=== PATIENT | female | born 1955 | race Asian ===

== ENCOUNTER 2016-11-26 11:46 | Observation (INO) | END 2016-11-27 15:10 | disposition home or self-care (01) | DX: R07.89 Other chest pain (principal); I10 Essential (primary) hypertension; E11.9 Type 2 diabetes mellitus without complications; E78.00 Pure hypercholesterolemia, unspecified; E78.5 Hyperlipidemia, unspecified; Z79.82 Long term (current) use of aspirin; Z98.51 Tubal ligation status | CPT/HCPCS: 71010; 78452; 80053; 80061; 82550; 82553; 82962; 83036; 83880; 84443; 84484; 85025; 85610; 85730; 93005; 93017; 93306; 96372; 99285; A9500; A9505; G0378; J1815; J2785 ==

== ENCOUNTER 2017-06-09 19:03 | Emergency (ER) | payer BC ==
[~2017-06-09] VITALS: Ht 160 cm; Wt 71.5 kg
[~2017-06-09 19:03] MED LIST: ASPI81TA3 PO; ATEN-138 PO; EMPA25TA PO; FENO145T19 PO; GLIM4TAB PO; LIRA0.6P2 SQ; METF-406 PO
[2017-06-09 19:10] VITALS: Ht 160 cm; Wt 71.5 kg
[2017-06-09] MEDS ORDERED: morphine 4 MG/ML VIAL IV STA (20:40)
[2017-06-09] MEDS ORDERED: ONDANSETRON 4 MG INJ IV STA (20:40)
[2017-06-09] MEDS ORDERED: CHOL400T10 PO (21:20)
[2017-06-09] MEDS ORDERED: CYAN100T PO (21:21)
[2017-06-09] MEDS ORDERED: ESOM20CA PO (21:22)
[2017-06-09] MEDS ORDERED: ATOR10TA65 PO (21:25)
[2017-06-09 21:34] LABS: ABNORMAL IP MESSAGE 1; BASOPHIL # 0.1 10^3/ul (0.0-0.1); BASOPHILS % 0.6 % (0.0-2.0); EOSINOPHILS # 0.2 10^3/ul (0.0-0.5); EOSINOPHILS % 1.3 % (0.0-7.0); HEMATOCRIT 42.7 % (37.0-47.0); HEMOGLOBIN 14.1 g/dl (12.0-16.0); LYMPHOCYTES # 2.5 10^3/ul (0.8-2.9); LYMPHOCYTES % 18.9 % (15.0-51.0); MEAN CORPUSCULAR HEMOGLOBIN 29.9 pg (29.0-33.0); MEAN CORPUSCULAR VOLUME 90.7 fl (82.0-101.0); MEAN PLATELET VOLUME 11.4 fl (7.4-10.4); MONOCYTE # 1.6 10^3/ul (0.3-0.9); MONOCYTES % 12.1 % (0.0-11.0); NEUTROPHIL # 8.9 10^3/ul (1.6-7.5); NEUTROPHILS % 66.9 % (39.0-77.0); PLATELET COUNT 239 10^3/UL (140-415); RED BLOOD COUNT 4.71 10^6/ul (4.20-5.40); RED CELL DISTRIBUTION WIDTH 12.3 % (11.5-14.5); WHITE BLOOD COUNT 13.4 10^3/ul (4.8-10.8)
[2017-06-09 21:35] LABS: POSITIVE DIFF @See below
[2017-06-09 21:37] LABS: ADD UMIC NO; UR ASCORBIC ACID 20 mg/dL (NEGATIVE); UR BILIRUBIN (Dip) NEGATIVE (NEGATIVE); UR BLOOD (Dip) NEGATIVE (NEGATIVE); UR CLARITY CLEAR (CLEAR); UR COLOR YELLOW (YELLOW); UR GLUCOSE (Dip) 3+ mg/dL (NEGATIVE); UR KETONES (Dip) TRACE mg/dL (NEGATIVE); UR LEUKOCYTE ESTERASE (Dip) NEGATIVE Leu/ul (NEGATIVE); UR NITRITE (Dip) NEGATIVE (NEGATIVE); UR SPECIFIC GRAVITY (Dip) 1.014 (1.003-1.030); UR TOTAL PROTEIN (Dip) NEGATIVE (NEGATIVE); UR UROBILINOGEN (Dip) NEGATIVE (NEGATIVE)
[2017-06-09 21:52] LABS: ALBUMIN 4.7 g/dl (3.3-4.9); ALBUMIN/GLOBULIN RATIO 1.34; BILIRUBIN,INDIRECT 0.5 mg/dl (0-1.1); BILIRUBIN,TOTAL 0.5 mg/dl (0.2-1.3); CALCIUM 9.8 mg/dl (8.4-10.2); CREATININE 0.56 mg/dl (0.44-1.00); POTASSIUM 3.5 mmol/L (3.5-5.1); TOTAL PROTEIN 8.2 g/dl (6.1-8.1)
[2017-06-09] MEDS ORDERED: metroNIDAZOLE 500 MG TAB PO ONE (22:30)
[2017-06-09] MEDS ORDERED: CIPROFLOXACIN 500 MG TAB PO ONE (22:30)
[2017-06-09] MEDS ORDERED: HYDR-902 PO (22:32)
[2017-06-09] MEDS ORDERED: CIPR500T4 PO (22:32)
[2017-06-09] MEDS ORDERED: DOCU-144 PO (22:32)
[2017-06-09] MEDS ORDERED: METR500T PO (22:32)
--- NOTE | 2017-06-09 22:37 | RADRPT ---
PROCEDURE: CT Abdomen and Pelvis without contrast. CLINICAL INDICATION: Abdominal and pelvic pain. Left lower quadrant pain. TECHNIQUE: CT scan of the abdomen and pelvis without contrast was performed. Coronal and sagittal reformatted images were obtained from the axial source images. Images were reviewed on a high-resolu [employer] PACS workstation. Total exam DLP is 848.55 mGy-cm. CTDIvol is 16.11 mGy. One or more of the f ollowing dose reduction techniques were used: Automated exposure control, adjustment of the mA and/o r kV according to patient size, use of iterative reconstruction technique. COMPARISON: None. FINDINGS: The lung bases are normal. There is no pleural effusion. The liver is normal in size and attenuation. There is no focal hepatic lesion. The gallbladder and bile ducts are normal. The spleen is normal in size. There is no focal splenic lesion. Both adrenals are normal with no enlargement or mass. The pancreas is unremarkable with no mass or evidence of pancreatitis. There is no renal mass or hydronephrosis. There is no renal calculus or ureteral calculus. The abdominal aorta is not dilated. There is calcification in the aorta consistent with atherosclero sis. There is no retroperitoneal lymphadenopathy or mass. There is no pelvic lymphadenopathy or mass. The bladder and distal ureters are normal. The appendix is well seen and appears normal. There is diverticulosis of the descending colon and sigmoid colon. There is a region of thickening o f the bowel wall and marked surrounding mesenteric edema in the lower descending colon. There is no abscess. The bowel and mesentery are otherwise normal. There is no free fluid or free gas. There are degenerative changes of the spine. There is no fracture or lytic lesion IMPRESSION: 1. Atherosclerosis. 2. Normal appendix. 3. Diverticulosis of the descending colon and sigmoid colon. 4. Region of thickening of the bowel wall and marked surrounding mesenteric edema in the lower desc ending colon. This is probably due to diverticulitis. Neoplasm may also give this appearance. Follow -up advised. 5. Degenerative changes of the spine. 6. Otherwise unremarkable study. RPTAT: QQ .Jv Castaneda MD, MD Date Time Electronically viewed and signed by .Jv Castaneda MD, on 06/09/2017 22:37 .R/
--- NOTE | 2017-06-09 22:46 | ERD ---
ER Documentation Chief Complaint Date/Time DATE: 06/09/17 TIME: 22:44 Chief Complaint LLQ abd pain x 4 days HPI Patient is a 61-year-old female with previous cancer of uterus, diabetes, and hypertension who presents with abdominal pain. She said that she ate "roscoe bees " last night. The patient now has left lower quadrant pain which started at 4 AM. It is constant and sharp in nature. She tried Zantac. She does not want to be admitted to the hospital. Her primary doctor is Dr. Milsl. ROS All systems reviewed and are negative except as per history of present illness. Medications Home Meds Active Scripts Metronidazole* (Flagyl*) 500 Mg Tablet, 500 MG PO TID for 7 Days, TAB Prov:JOSE ANTONIO BIRMINGHAM MD 06/09/17 Ciprofloxacin Hcl* (Ciprofloxacin Hcl*) 500 Mg Tablet, 500 MG PO BID for 7 Days , TAB Prov:JOSE ANTOINO BIRMINGHAM MD 06/09/17 Docusate Sodium* (Colace*) 100 Mg Capsule, 100 MG PO TID, #30 CAP Prov:JOSE ANTONIO BIRMINGHAM MD 06/09/17 Hydrocodone/Acetaminophen ([place] 10-325 Tablet) 1 Each Tablet, 1 TAB PO Q6H Y for PAIN, #12 TAB Prov:JOSE ANTONIO BIRMINGHAM MD 06/09/17 Metformin Hcl* (Metformin Hcl* ER) 1,000 Mg Tab.er.24, 1000 MG PO BID for 30 Days, #60 TAB 3 Refills Prov:BENNETT SCHULTZ MD 11/27/16 Liraglutide (Victoza 3-Max) 0.6 Mg/0.1 Ml Pen.injctr, 1.8 MG SQ DAILY for 30 Days, #3 SYR 3 Refills Prov:BENNETT SCHULTZ MD 11/27/16 Glimepiride* (Glimepiride*) 4 Mg Tablet, 4 MG PO WITH BREAKFAST DINNE for 30 Days, #60 TAB 3 Refills Prov:BENNETT SCHULTZ MD 11/27/16 Reported Medications Atorvastatin Calcium (Atorvastatin Calcium) 10 Mg Tablet, 10 MG PO QHS, #30 TAB 06/09/17 Esomeprazole Mag Trihydrate (Nexium) Unknown Strength Capsule.dr, 1 CAP PO DAILY , #30 CAP 06/09/17 Cyanocobalamin* (Vitamin B-12*) Unknown Strength Tablet, 1 TAB PO DAILY, TAB 06/09/17 Cholecalciferol* (Vitamin D*) Unknown Strength Tablet, 1 TAB PO DAILY, TAB 06/09/17 Aspirin* (Aspirin* Chew) 81 Mg Tab.chew, 81 MG PO DAILY, TAB.CHEW 11/26/16 Atenolol (Tenormin) 25 Mg Tab, 1 TAB PO DAILY 03/20/13 Discontinued Scripts Fenofibrate Nanocrystallized* (Fenofibrate*) 145 Mg Tablet, 145 MG PO DAILY for 30 Days, #30 TAB 3 Refills Prov:BENNETT SCHULTZ MD 11/27/16 Empagliflozin (Jardiance) 25 Mg Tablet, 25 MG PO DAILY for 30 Days, #30 TAB 3 Refills Prov:BENNETT SCHULTZ MD 11/27/16 Allergies Allergies: Coded Allergies: No Known Allergy (Unverified , 06/09/17) PMhx/Soc History of Surgery: Yes (TABSO) Anesthesia Reaction: No Hx Neurological Disorder: No Hx Respiratory Disorders: No Hx Cardiac Disorders: No Hx Psychiatric Problems: No Hx Miscellaneous Medical Probl: Yes (DIABETES) Hx Alcohol Use: No Hx Substance Use: No Hx Tobacco Use: No Smoking Status: Never smoker FmHx Family History: diabetes Physical Exam Vitals Vital Signs Date Time Temp Pulse Resp B/P Pulse Ox O2 Delivery O2 Flow Rate FiO2 06/09/17 19:10 98.1 98 20 138/80 98 Physical Exam Const: Moderate distress secondary to pain Head: Atraumatic Eyes: Normal Conjunctiva ENT: Normal External Ears, Nose and Mouth. Neck: Full range of motion..~ No meningismus. Resp: Clear to auscultation bilaterally Cardio: Regular rate and rhythm, no murmurs Abd: Soft, left lower quadrant abdominal pain with tenderness to palpation, no rebound or guarding Skin: No petechiae or rashes Back: No midline or flank tenderness Ext: No cyanosis, or edema Neur: Awake and alert Psych: Normal Mood and Affect Result Diagram: 06/09/17205406/09/172054 Results 24 hrs Laboratory Tests Test 06/09/17 20:55 White Blood Count 13.410^3/ul Red Blood Count 4.7110^6/ul Hemoglobin 14.1g/dl Hematocrit 42.7% Mean Corpuscular Volume 90.7fl Mean Corpuscular Hemoglobin 29.9pg Mean Corpuscular Hemoglobin Concent 33.0g/dl Red Cell Distribution Width 12.3% Platelet Count 34242^3/UL Mean Platelet Volume 11.4fl Neutrophils % 66.9% Lymphocytes % 18.9% Monocytes % 12.1% Eosinophils % 1.3% Basophils % 0.6% Nucleated Red Blood Cells % 0.0/100WBC Neutrophils # 8.910^3/ul Lymphocytes # 2.510^3/ul Monocytes # 1.610^3/ul Eosinophils # 0.210^3/ul Basophils # 0.110^3/ul Nucleated Red Blood Cells # 0.010^3/ul Urine Color YELLOW Urine Clarity CLEAR Urine pH 6.0 Urine Specific [place] 1.014 Urine Ketones TRACEmg/dL Urine Nitrite NEGATIVEmg/dL Urine Bilirubin NEGATIVEmg/dL Urine Urobilinogen NEGATIVEmg/dL Urine Leukocyte Esterase NEGATIVELeu/ul Urine Hemoglobin NEGATIVEmg/dL Urine Glucose 3+mg/dL Urine Total Protein NEGATIVEmg/dl Sodium Level 139mmol/L Potassium Level 3.5mmol/L Chloride Level 99mmol/L Carbon Dioxide Level 29mmol/L Anion Gap 15 Blood Urea Nitrogen 19mg/dl Creatinine 0.56mg/dl Glucose Level 186mg/dl Calcium Level 9.8mg/dl Total Bilirubin 0.5mg/dl Direct Bilirubin 0.00mg/dl Indirect Bilirubin 0.5mg/dl Aspartate Amino Transf (AST/SGOT) 54IU/L Alanine Aminotransferase (ALT/SGPT) 84IU/L Alkaline Phosphatase 173IU/L Total Protein 8.2g/dl Albumin 4.7g/dl Globulin 3.50g/dl Albumin/Globulin Ratio 1.34 Lipase 203U/L Current Medications Medications (Trade) Dose Ordered Sig/Leanne Route PRN Reason Start Time Stop Time Status Last Admin Dose Admin Morphine Sulfate (morphine) 4 mg ONCE STAT IV 06/09/17 20:40 06/09/17 20:41 DC 06/09/17 21:05 Ondansetron HCl (Zofran Inj) 4 mg ONCE STAT IV 06/09/17 20:40 06/09/17 20:41 DC 06/09/17 21:05 Ciprofloxacin (Cipro) 500 mg ONCE ONCE PO 06/09/17 22:30 06/09/17 22:31 DC Metronidazole (Flagyl) 500 mg ONCE ONCE PO 06/09/17 22:30 06/09/17 22:31 DC Procedures/MDM CT abdomen pelvis shows probable diverticulitis per radiology. Patient is a 61-year-old female presents with left lower quadrant abdominal pain. CT scan shows likely diverticulitis and possible neoplasm. I did provide a copy of the CAT scan report and laboratory studies to the patient prior to discharge. The patient will be treated with Cipro and Flagyl as well as [place] and Colace as an outpatient as she does not want admission at this time. I believe outpatient treatment is reasonable option at this time but she will need close follow-up with her primary doctor within 24-48 hours. She can return sooner for any worsening symptoms. Departure Diagnosis: Primary Impression: Diverticulitis Diverticulitis site: large intestine Diverticulitis bleeding: without bleeding Diverticulitis complication: without perforation or abscess Qualified Code: K57.32 - Diverticulitis of large intestine without perforation or abscess without bleeding Additional Impression: Abdominal pain Abdominal location: left lower quadrant Qualified Code: R10.32 - Left lower quadrant pain Condition: Fair Patient Instructions: Abdominal Pain, Diverticulitis Additional Instructions: Call your primary care doctor TOMORROW for an appointment during the next 1-2 days.See the doctor sooner or return here if your condition worsens before your appointment time. JOSE ANTONIO BIRMINGHAM MD Jun 09, 2017 22:46
[2017-06-09 23:26] VITALS: BP 103/65; PULSE 85; RESP 16; TEMP 98.1
== END 2017-06-09 23:31 | disposition home or self-care (01) ==
LOC: E/R 19:03
DX: K57.32 Diverticulitis of large intestine without perforation or abscess without bleeding (principal); E11.9 Type 2 diabetes mellitus without complications; Z79.82 Long term (current) use of aspirin; Z79.84 Long term (current) use of oral hypoglycemic drugs
CPT/HCPCS: 36415; 74176; 80053; 81003; 83690; 85025; 96374; 96375; 99285; J2270; J2405

== ENCOUNTER 2018-02-27 08:32 | Emergency (ER) | END 2018-02-27 12:07 | disposition home or self-care (01) ==

== ENCOUNTER 2019-04-27 20:04 | Emergency (ER) | payer BC ==
[~2019-04-27] VITALS: Ht 160 cm; Wt 78.6 kg
[~2019-04-27 20:04] MED LIST changes: +ASCO500C7 PO; +ASPI-903 PO; -ASPI81TA3 PO; -ATEN-138 PO; +ATEN50TA PO; +BIOT10005 PO; +CHOL400T10 PO; +CYAN100T PO; +EMPA10TA PO; -EMPA25TA PO; -FENO145T19 PO; +GLIM2TAB PO; -GLIM4TAB PO; +MULT-902 PO; +NAPR-985 PO; +PIOG30TA12 PO
[2019-04-27 20:08] VITALS: Ht 160 cm; Wt 78.6 kg
--- NOTE | 2019-04-27 20:58 | ERD ---
ER Documentation Chief Complaint Chief Complaint blurry vision L eye now;painless; hx retinal tear,DM,HTN HPI 63-year-old female past medical history of hypertension, diabetes type 2, retin al tear who presents with complaint of left eye blurry vision. Patient states symptoms began abruptly around 6:00 PM. Started with seeing floaters in 9 now with grainy, oil slick look to vision. She denies headache, dizziness, complete vision loss affected eye, injury to eyes, and reports that she checked her blood pressure and it was in normal range at home. She denies pain with eye movement. States she had retinal tear about 1 year ago and had laser surgery. Saw her doctor about a month ago and told her I was fine. She otherwise denies chest pain, shortness of breath, dyspnea, or any other concerning symptoms ROS All systems reviewed and are negative except as per history of present illness. Medications Home Meds Active Scripts Naproxen* (Naprosyn*) 500 Mg Tablet, 500 MG PO BID PRN for PAIN AND/OR INFLAMMATION, #30 TAB Prov:MATILDE CLAYTON MD 02/27/18 Metformin Hcl* (Metformin Hcl* ER) 1,000 Mg Tab.er.24, 1000 MG PO BID for 30 Days, #60 TAB 3 Refills Prov:BENNETT SCHULTZ MD 11/27/16 Reported Medications Biotin (Biotin) 10,000 Mcg Capsule, 10303 MCG PO DAILY, CAP 02/27/18 Ascorbic Acid* (Vitamin C*) 500 Mg Capsule.sa, 500 MG PO DAILY, CAP 02/27/18 Multivitamin/Iron/Folic Acid (Centrum Adults Tablet) 1 Each Tablet, 1 EACH PO DAILY, TAB 02/27/18 Atenolol* (Atenolol*) 50 Mg Tablet, 50 MG PO DAILY, #30 TAB 02/27/18 Glimepiride* (Glimepiride*) 2 Mg Tablet, 2 MG PO WITH BREAKFAST DINNE, TAB 02/27/18 Liraglutide (Victoza 3-Max) 0.6 Mg/0.1 Ml Pen.injctr, 1.8 MG SQ DAILY, SYR 02/27/18 Empagliflozin (Jardiance) 10 Mg Tablet, 10 MG PO DAILY, TAB 02/27/18 Pioglitazone Hcl* (Actos*) 30 Mg Tablet, 30 MG PO DAILY, #30 TAB 02/27/18 Cyanocobalamin* (Vitamin B-12*) Unknown Strength Tablet, 1 TAB PO DAILY, TAB 06/09/17 Cholecalciferol* (Vitamin D*) Unknown Strength Tablet, 1 TAB PO DAILY, TAB 06/09/17 Aspirin* (Aspirin* Chew) 81 Mg Tab.chew, 81 MG PO DAILY, TAB.CHEW 11/26/16 Allergies Allergies: Coded Allergies: No Known Allergy (Unverified , 02/27/18) PMhx/Soc History of Surgery: Yes (TABSO) Anesthesia Reaction: No Hx Neurological Disorder: No Hx Respiratory Disorders: No Hx Cardiac Disorders: Yes (HTN) Hx Psychiatric Problems: No Hx Miscellaneous Medical Probl: Yes (CARPAL TUNNEL SYNDROME, RETINOPATHY ) Hx Alcohol Use: No Hx Substance Use: No Hx Tobacco Use: No Smoking Status: Never smoker FmHx Family History: diabetes Physical Exam Vitals Vital Signs Date Temp Pulse Resp B/P (MAP) Pulse Ox O2 O2 Flow FiO2 Time Delivery Rate 04/27/19 96.7 68 18 133/65 99 20:08 (87) Physical Exam I have reviewed the triage vital signs. Const: Well nourished, well developed, appears stated age Eyes: PERRL, no conjunctival injection HENT: NCAT, Neck supple without meningismus CV: RRR, Warm, well-perfused extremities RESP: CTAB, Unlabored respiratory effort GI: soft, non-tender, non-distended, no masses MSK: No gross deformities appreciated Skin: Warm, dry. No rashes Neuro: grossly non focal Psych: Appropriate mood and affect. Procedures/MDM 63-year-old female with complaint of left eye blurry vision. Ultrasound of eyes with finding of bilateral retinal detachment. Vitreous humor hemorrhage. Patient is to be transferred to [facility] for further care and treatment. Case discussed with attending Dr. Daniel. ED course: Visual acuity with glasses left eye 20/200 right eye 20/20 Departure Diagnosis: Primary Impression: Blurring of visual image Condition: Stable Patient Instructions: Blurred Vision Referrals: JANE GUPTA MD (PCP) Additional Instructions: Call your primary care doctor TOMORROW for an appointment during the next 2-3 days.See the doctor sooner or return here if your condition worsens before your appointment time. CLAIRE ASHRAF PA-C Apr 27, 2019 20:58
[2019-04-27 23:39] VITALS: BP 121/61; PULSE 62; RESP 16
--- NOTE | 2019-04-28 01:15 | ERD ---
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 She complains as if the curtain is going down on the left eye with floaters, denies pain, denies any right eye visual change, denies headache, neck pain, chest pain, dyspnea, abdominal pain, vomiting, dysuria, diarrhea. She does not smoke, drinks socially Past medical history: Diabetes mellitus, hypertension Past surgical history: Left eye retinal tear laser therapy August 2018, hysterectomy due to cervical cancer ROS All systems reviewed and are negative except as per history of present illness. Medications Home Meds Active Scripts Naproxen* (Naprosyn*) 500 Mg Tablet, 500 MG PO BID PRN for PAIN AND/OR INFLAMMATION, #30 TAB Prov:MATILDE CLAYTON MD 02/27/18 Metformin Hcl* (Metformin Hcl* ER) 1,000 Mg Tab.er.24, 1000 MG PO BID for 30 Days, #60 TAB 3 Refills Prov:BENNETT SCHULTZ MD 11/27/16 Reported Medications Biotin (Biotin) 10,000 Mcg Capsule, 12738 MCG PO DAILY, CAP 02/27/18 Ascorbic Acid* (Vitamin C*) 500 Mg Capsule.sa, 500 MG PO DAILY, CAP 02/27/18 Multivitamin/Iron/Folic Acid (Centrum Adults Tablet) 1 Each Tablet, 1 EACH PO DAILY, TAB 02/27/18 Atenolol* (Atenolol*) 50 Mg Tablet, 50 MG PO DAILY, #30 TAB 02/27/18 Glimepiride* (Glimepiride*) 2 Mg Tablet, 2 MG PO WITH BREAKFAST DINNE, TAB 02/27/18 Liraglutide (Victoza 3-Max) 0.6 Mg/0.1 Ml Pen.injctr, 1.8 MG SQ DAILY, SYR 02/27/18 Empagliflozin (Jardiance) 10 Mg Tablet, 10 MG PO DAILY, TAB 02/27/18 Pioglitazone Hcl* (Actos*) 30 Mg Tablet, 30 MG PO DAILY, #30 TAB 02/27/18 Cyanocobalamin* (Vitamin B-12*) Unknown Strength Tablet, 1 TAB PO DAILY, TAB 06/09/17 Cholecalciferol* (Vitamin D*) Unknown Strength Tablet, 1 TAB PO DAILY, TAB 06/09/17 Aspirin* (Aspirin* Chew) 81 Mg Tab.chew, 81 MG PO DAILY, TAB.CHEW 11/26/16 Allergies Allergies: Coded Allergies: No Known Allergy (Unverified , 02/27/18) PMhx/Soc History of Surgery: Yes (TABSO) Anesthesia Reaction: No Hx Neurological Disorder: No Hx Respiratory Disorders: No Hx Cardiac Disorders: Yes (HTN) Hx Psychiatric Problems: No Hx Miscellaneous Medical Probl: Yes (CARPAL TUNNEL SYNDROME, RETINOPATHY ) Hx Alcohol Use: No Hx Substance Use: No Hx Tobacco Use: No Smoking Status: Never smoker Physical Exam Vitals Vital Signs Date Temp Pulse Resp B/P (MAP) Pulse Ox O2 O2 Flow FiO2 Time Delivery Rate 04/27/19 98.0 62 16 121/61 98 Room Air 23:39 (81) 04/27/19 96.7 68 18 133/65 99 20:08 (87) Physical Exam Const: No acute distress. Head: Atraumatic. Eyes: Normal Conjunctiva.No nystagmus ENT: Normal External Ears, Nose and Mouth. Neck: Full range of motion. No meningismus. Resp: Clear to auscultation bilaterally. Cardio: Regular rate and rhythm. Abd: Soft, non distended, normal bowel sounds, non tender. Skin: No petechiae or rashes. Back: No midline or flank tenderness. Ext: No cyanosis, or edema. Neur: Awake and alert. No focal deficit Psych: Normal Mood and Affect. Procedures/[place] [id number] Radiology Main Line: [phone] DIAGNOSTIC IMAGING REPORT Patient: MELINDA RIOS : 1955 Age: 63 Sex: F MR #: [id number] DOS: 04/27/19 0000 Ordering MD: CLAIRE ASHRAF PA-C Location: [facility] Room/Bed: PROCEDURE: US orbits. CLINICAL INDICATION: Bilateral visual disturbance. TECHNIQUE: High-resolution sonography of the orbits was performed in the axial and sagittal planes. COMPARISON: None. FINDINGS: There are echoes bilaterally in the posterior chambers posteriorly consistent with vitreous hemorrhage. In addition, bilateral linear echoes are present in the posterior chambers which may indicate retinal detachment. There is no mass. IMPRESSION: 1. Bilateral vitreous hemorrhage. 2. Possible bilateral retinal detachment. Ophthalmology consultation advised. RPTAT: QQ .Jv Castaneda MD, MD Date Time Electronically viewed and signed by .Jv Castnaeda MD, on 04/27/2019 22:23 .R/ CC: CLAIRE ASHRAF PA-C [id number] MEDICAL MAKING DECISION: The patient is a 63-year-old female, presenting with left eye loss of vision, consistent with either left retinal detachment and/or vitreous hemorrhage. However the ultrasound was read as both retinal detachment and vitreous hemorrhage Visual acuity left eye 20/200, right eye 20/20 with correction Consultation: I discussed the patient with Dr. Barrera, who was financial foundations representative for her composite worker Dr Xiao at 11:10 pm, who assured me that the patient can be seen in his office tomorrow at 11:30 PM Departure Diagnosis: Primary Impression: Retinal detachment Additional Impression: Vitreous hemorrhage Condition: Stable Patient Instructions: Retinal Detachment Additional Instructions: I discussed the findings with the patient. I advised the patient to follow-up with Dr Barrera/ Dr Justin tomorrow at 11am [address] [place] [address], Disclaimer: Inadvertent spelling and grammatical errors are likely due to EHR/dictation software use and do not reflect on the overall quality of patient care. Also, please note that the electronic time recorded on this note does not necessarily reflect the actual time of the patient encounter. BENNETT FULLER MD Apr 28, 2019 01:15
== END 2019-04-27 23:39 | disposition home or self-care (01) ==
LOC: FTE 20:04 → E/R 23:39
DX: H33.8 Other retinal detachments (principal); H43.13 Vitreous hemorrhage, bilateral; I10 Essential (primary) hypertension; E11.9 Type 2 diabetes mellitus without complications; Z79.82 Long term (current) use of aspirin; Z79.84 Long term (current) use of oral hypoglycemic drugs
CPT/HCPCS: 76536